=== PATIENT | female | born 1985 | race Caucasian/White ===

== ENCOUNTER 2016-10-22 17:17 | Emergency (ER) | payer BC ==
[~2016-10-22] VITALS: Ht 165.1 cm; Wt 74.8 kg
--- NOTE | 2016-10-22 17:37 | Emergency Room Report ---
History of Present Illness General Chief Complaint: Overdose Source: Patient, EMS Present Illness HPI This patient is brought in by EMS. She states she was trying to get "numb." She states that she drank a lot of [employer] vodka and took some other antianxiety medications. EMS reports that this was xanax. The patient denies suicide attempt. She has no other complaints. Allergies: Coded Allergies: AMOXICILLIN (Verified Allergy, Unknown, 10/22/16) Patient History Past Medical History: see triage record, psych hx Social History: Reports: alcohol use, Denies: drug use, smoking Last Menstrual Period: unk Reviewed Nursing Documentation: PMH: Agreed, PSxH: Agreed Nursing Documentation-PMH History Of Psychiatric Problem: Yes - Depression Review of Systems All Other Systems: negative except mentioned in HPI Physical Exam Vital Signs Date Time Temp Pulse Resp B/P Pulse Ox O2 Delivery O2 Flow Rate FiO2 10/22/16 17:14 98.4 100 18 110/52 99 Room Air Sp02 EP Interpretation: reviewed, normal General Appearance: no apparent distress, GCS 15, non-toxic, other - Sleepy but arousable to answer simple questions. Head: normocephalic, atraumatic Eyes: bilateral eye PERRL - 3mm pupils bilaterally, bilateral eye normal inspection ENT: hearing grossly normal, normal pharynx, no angioedema, normal voice Neck: full range of motion, supple/symm/no masses Respiratory: chest non-tender, lungs clear, normal breath sounds, speaking full sentences Cardiovascular #1: regular rate, rhythm, no edema Gastrointestinal: normal bowel sounds, non tender, soft, non-distended, no guarding, no rebound Rectal: deferred Musculoskeletal: back normal, normal range of motion, non-tender Neurologic: oriented x3, responsive, motor strength/tone normal, sensory intact , speech normal, other - Sleepy but non-focal Psychiatric: other - Difficult to assess at this time secondary to intoxication Skin: normal color, no rash, warm/dry, well hydrated Medical Decision Making Diagnostic Impression: Primary Impression: Alcohol intoxication Additional Impression: Benzodiazepine abuse ER Course This patient presents with alcohol intoxication and benzodiazepine abuse. The patient urine drug screen was positive for cocaine. The patient states she did cocaine earlier this week and that was not today. The patient denies suicidal ideation or intention. The patient was allowed to sober up in the emergency department. The patient's friend is bedside and able to make sure the patient does not drive and gets home safely. Patient is able to ambulate and articulate herself and is clinically sober at discharge. The patient was given the local alcohol and drug rehabilitation resources. Labs Test 10/22/16 17:43 10/22/16 18:00 White Blood Count 6.8 K/UL (4.8-10.8) Red Blood Count 3.75 M/UL (4.20-5.40) Hemoglobin 12.3 G/DL (12.0-16.0) Hematocrit 34.8 % (37.0-47.0) Mean Corpuscular Volume 93 FL (80-99) Mean Corpuscular Hemoglobin 32.7 PG (27.0-31.0) Mean Corpuscular Hemoglobin Concent 35.3 G/DL (32.0-36.0) Red Cell Distribution Width 11.9 % (11.6-14.8) Platelet Count 212 K/UL (150-450) Mean Platelet Volume 7.6 FL (6.5-10.1) Neutrophils (%) (Auto) 47.0 % (45.0-75.0) Lymphocytes (%) (Auto) 43.4 % (20.0-45.0) Monocytes (%) (Auto) 7.7 % (1.0-10.0) Eosinophils (%) (Auto) 0.9 % (0.0-3.0) Basophils (%) (Auto) 1.0 % (0.0-2.0) Sodium Level 142 mEQ/L (135-145) Potassium Level 3.6 mEQ/L (3.4-4.9) Chloride Level 104 mEQ/L (98-107) Carbon Dioxide Level 21 mEQ/L (20-30) Anion Gap 17 (5-15) Blood Urea Nitrogen 7 mg/dL (7-23) Creatinine 0.7 mg/dL (0.5-0.9) Estimat Glomerular Filtration Rate > 60 mL/min (>60) Glucose Level 81 mg/dL (74-106) Calcium Level 8.4 mg/dL (8.6-10.2) Total Bilirubin 0.2 mg/dL (0.0-1.2) Aspartate Amino Transf (AST/SGOT) 12 U/L (5-40) Alanine Aminotransferase (ALT/SGPT) 11 U/L (3-33) Alkaline Phosphatase 53 U/L (35-104) Total Protein 6.3 g/dL (6.6-8.7) Albumin 4.0 g/dL (3.5-5.2) Globulin 2.3 g/dL Albumin/Globulin Ratio 1.7 (1.0-2.7) Thyroid Stimulating Hormone (TSH) 0.566 uIU/mL (0.300-4.500) Salicylates Level < 1 mg/dL (10-30) Acetaminophen Level < 10 ug/mL (10-30) Serum Alcohol 141 mg/dL Urine Color Pale yellow Urine Appearance Clear Urine pH 6 (4.5-8.0) Urine Specific [place] 1.010 (1.005-1.035) Urine Protein 2+ (NEGATIVE) Urine Glucose (UA) Negative (NEGATIVE) Urine Ketones Negative (NEGATIVE) Urine Occult Blood Negative (NEGATIVE) Urine Nitrite Negative (NEGATIVE) Urine Bilirubin Negative (NEGATIVE) Urine Urobilinogen Normal MG/DL (0.0-1.0) Urine Leukocyte Esterase Negative (NEGATIVE) Urine RBC 0 /HPF (0 - 2) Urine WBC 0-2 /HPF (0 - 2) Urine Squamous Epithelial Cells None /LPF (NONE/OCC) Urine Amorphous Sediment Few /LPF (NONE) Urine Bacteria Occasional /HPF (NONE) Urine HCG, Qualitative Negative Urine Opiates Screen Negative (NEGATIVE) Urine Barbiturates Screen Negative (NEGATIVE) Phencyclidine (PCP) Screen Negative (NEGATIVE) Urine Amphetamines Screen Negative (NEGATIVE) Urine Benzodiazepines Screen Negative (NEGATIVE) Urine Cocaine Screen Positive (NEGATIVE) Urine Marijuana (THC) Screen Negative (NEGATIVE) EKG Diagnostic Results Rate: normal Rhythm: NSR ST Segments: no acute changes Rhythm Strip Diag. Results EP Interpretation: yes Rate: 90's Rhythm: NSR, no PVC's, no ectopy Last Vital Signs Date Time Temp Pulse Resp B/P Pulse Ox O2 Delivery O2 Flow Rate FiO2 10/22/16 17:14 98.4 100 18 110/52 99 Room Air Disposition: HOME, SELF-CARE Condition: Improved ESTHER SOLORIO D.O. Oct 22, 2016 17:37
[2016-10-22 18:12] LABS: EOSINOPHILS % (AUTO) 0.9 % (0.0-3.0); LYMPHOCYTES % (AUTO) 43.4 % (20.0-45.0); MEAN CORPUSCULAR HEMOGLOBIN 32.7 PG (27.0-31.0); MEAN CORPUSCULAR HGB CONC 35.3 G/DL (32.0-36.0); MEAN CORPUSCULAR VOLUME 93 FL (80-99); MEAN PLATELET VOLUME 7.6 FL (6.5-10.1); MONOCYTES % (AUTO) 7.7 % (1.0-10.0); PLATELET COUNT 212 K/UL (150-450); RED BLOOD COUNT 3.75 M/UL (4.20-5.40); RED CELL DISTRIBUTION WIDTH 11.9 % (11.6-14.8); WHITE BLOOD COUNT 6.8 K/UL (4.8-10.8)
[2016-10-22 18:33] LABS: ACETAMINOPHEN < 10 ug/mL (10-30); ALANINE AMINOTRANSFERASE 11 U/L (3-33); ALBUMIN/GLOBULIN RATIO 1.7 (1.0-2.7); ALCOHOL 141 mg/dL; ANION GAP 17 (5-15); ASPARTATE AMINO TRANSFERASE 12 U/L (5-40); CALCIUM 8.4 mg/dL (8.6-10.2); CARBON DIOXIDE 21 mEQ/L (20-30); CHLORIDE 104 mEQ/L (98-107); CREATININE 0.7 mg/dL (0.5-0.9); GLOMERULAR FILTRATION RATE > 60 mL/min (>60); HEMOLYSIS 1; POTASSIUM 3.6 mEQ/L (3.4-4.9); SODIUM 142 mEQ/L (135-145); TOTAL PROTEIN 6.3 g/dL (6.6-8.7)
[2016-10-22 18:43] LABS: THYROID STIMULATING HORMONE 0.566 uIU/mL (0.300-4.500)
[2016-10-22 18:52] LABS: APPEARANCE,URINE CLEAR; KETONES,URINE NEGATIVE (NEGATIVE); LEUKOCYTE ESTERASE ,URINE NEGATIVE (NEGATIVE); NITRITE,URINE NEGATIVE (NEGATIVE); PH,URINE 6 (4.5-8.0); PROTEIN,URINE 2+ (NEGATIVE); UROBILINOGEN,URINE NORMAL MG/DL (0.0-1.0)
[2016-10-22 19:05] VITALS: BP 94/56
[2016-10-22 19:07] LABS: RBC,URINE 0 /HPF (0 - 2); WBC,URINE 0-2 /HPF (0 - 2)
[2016-10-22 19:08] LABS: AMORPHOUS SEDIMENT,UR FEW /LPF; BACTERIA,URINE OCCASIONAL /HPF
[2016-10-22 20:55] VITALS: BP 99/73
[2016-10-22 21:15] VITALS: BP 104/73
== END 2016-10-22 21:16 | disposition home or self-care (01) ==
LOC: EDBD 17:17 → EMR 18:25
DX: F10.129 Alcohol abuse with intoxication, unspecified (principal); F13.10 Sedative, hypnotic or anxiolytic abuse, uncomplicated; F32.9 Major depressive disorder, single episode, unspecified; Z88.0 Allergy status to penicillin
CPT/HCPCS: 36415; 80053; 80300; 81003; 81025; 82962; 84443; 85025; 93005; 96374; 99284; G0480; 80329